=== PATIENT | female | born 1985 | race Caucasian/White ===

== ENCOUNTER 2016-10-18 05:50 | Emergency (ER) | payer OTHER ==
[~2016-10-18] VITALS: Ht 177.8 cm; Wt 77.3 kg
[~2016-10-18 05:50] MED LIST: DOCO200C5 PO; Docusate Sodium PO; Ibuprofen PO
[2016-10-18 05:57] VITALS: BP 145/91; PULSE 56; RESP 20; O2SAT 100
[2016-10-18 06:15] LABS: Mean Corpuscular Hemoglobin 30.9 pg (27.0-35.0); Mean Corpuscular Volume 86.2 fL (81-100)
[2016-10-18 06:16] LABS: BASOPHILS % (AUTO) 0.4 % (0-3); EOSINOPHILS % (AUTO) 3.4 % (0-5); MONOCYTES % (AUTO) 6.5 % (4-12); NEUTROPHILS % (AUTO) 64.2 % (40-74); Platelet Count 179 bil/L (150-400)
--- NOTE | 2016-10-18 06:17 | ED.REPORT ---
HPI-Abd Pain F Under 40 Date of Service Oct 18, 2016 ED Provider: Breann Herzog Patient is an otherwise healthy 31 year old female who presents to the ED complaining of L flank pain that awoke her at 0500 this morning. Her pain radiates across her back, exacerbated by movement, and is rated a 7/10 in severity. Associated symptoms include hematuria onset yesterday. She denies dysuria, fever, chills, nausea, vomiting, or any other symptoms. She has not had similar symptoms previously and does not have a hx of kidney stones. Patient's only medication is an oral contraceptive. Nursing Notes Stated Complaint: KIDNEY PAIN Chief Complaint: Female Abdominal Pain Nursing Notes Reviewed: Yes Allergies: Coded Allergies: No Known Allergies (Unverified , 10/09/13) Scheduled Docosahexanoic Acid ( Dha) 200 Mg Capsule 200 MG PO DAILY Scheduled PRN ([Docusate Sodium]) 100 MG CAPSULE 100 MG PO BID PRN PRN For Constipation ([Ibuprofen]) 800 MG TABLET 600 MG PO Q6H PRN PRN For Mild Pain oxyCODONE-Acetaminophen 5-325 mg (oxyCODONE-Acetaminophen 5-325 mg) 1 Each Tablet 1-2 TAB PO Q6H PRN PRN For Pain General Time Seen by MD: 06:17 Chief Complaint Flank pain left Hx Obtained From: Patient Arrived By: Walk-in Sudden in Onset?: Yes Onset Occurred: 1 - 4 hours ago Symptom Duration: Since onset Location: : Flank right Quality: Painful Radiation: : Back Severity: Current: Pain level 7 out of 10 Recent Healthcare: No recent doctor visit, No recent hospitalization Similar Sx Previous: No Past Medical History Past Medical History Notes: [employer]ING [employer]: [place] Past Medical History Denies Past Surgical History Reports: Tonsillectomy Family History Brother with Uric acid kidney stones Smoking History Unknown if Ever Smoker Social History Other Social History: Ambulatory Status Independent Review of Systems Constitutional: Denies: Chills, Fever GI: Denies: Nausea, Vomiting Female: Reports: Flank pain, Hematuria, Denies: Dysuria Musculoskeletal: Reports: Back pain Complete sys rev & neg: except as marked. Physical Exam Initial Vital Signs Vital Signs (First) Date Time Temp Pulse Resp B/P Pulse Ox O2 Delivery O2 Flow Rate FiO2 10/18/16 05:57 36.1 56 20 145/91 100 Initial VS: Reviewed, Vital signs abnormal Head / Eyes: Atraumatic, Normocephalic Neck: Supple, Full range of motion Skin: Warm, Dry Neurologic: Alert, Oriented, Nonfocal Psychiatric: Mood/affect normal, Behavior normal, Normal thought content General/Constitutional: Awake, Alert, No acute distress Respiratory / Chest: Atraumatic, Breath sounds NL, Breath sounds = bilat, No respiratory distress Cardiovascular: Heart rate NL, Regular rhythm, Heart sounds NL well perfused Abdomen: Atraumatic, Soft, Non-tender, BS normoactive Flank / Spine / Paraspinal: Positive: Flank tender L Interpretation & Diagnostics Interpretation & Diagnostics: upreg neg trace LE, + nitrated, protein, bili, blood Lab Results Interpretation Result Diagram: 10/18/16 0602 10/18/16 0602 Test 10/18/16 06:00 10/18/16 06:02 Hold Urine Received (Received) White Blood Count 8.3th/mm3 (3.8-10.1) Red Blood Count 4.50mil/mm3 (3.90-5.20) Hemoglobin 13.9g/dL (12.0-15.6) Hematocrit 38.8% (35.0-46.0) Mean Corpuscular Volume 86.2fL (81-100) Mean Corpuscular Hemoglobin 30.9pg (27.0-35.0) Mean Corpuscular Hemoglobin Concent 35.8% (32.0-37.0) Red Cell Distribution Width 11.4% (12.3-15.4) Platelet Count 179bil/L (150-400) Neutrophils (%) (Auto) 64.2% (40-74) Lymphocytes (%) (Auto) 25.4% (14-46) Monocytes (%) (Auto) 6.5% (4-12) Eosinophils (%) (Auto) 3.4% (0-5) Basophils (%) (Auto) 0.4% (0-3) Sodium Level 139mEq/L (134-144) Potassium Level 3.6mEq/L (3.5-5.2) Chloride Level 103mEq/L (97-108) Carbon Dioxide Level 23mmol/L (18-29) Blood Urea Nitrogen 13mg/dL (6-20) Creatinine 0.57mg/dL (0.57-1.00) Estimat Glomerular Filtration Rate 178mL/min (>59) Glucose Level 142mg/dL (60-99) Calcium Level 8.6mg/dL (8.5-10.1) Magnesium Level 1.7mg/dL (1.6-2.6) Total Bilirubin 0.4mg/dL (0.0-1.2) Aspartate Amino Transf (AST/SGOT) 15U/L (0-50) Alanine Aminotransferase (ALT/SGPT) 10U/L (0-32) Alkaline Phosphatase 61U/L (25-150) Total Protein 6.7g/dL (6.4-8.4) Albumin 4.2g/dL (3.4-5.0) Lipase 43U/L (13-60) CT Abd / Pelvis Interpretation IMPRESSION: Mild left hydronephrosis associated with a 3 mm stone in the proximal left ureter. Radiologist: Abdoulaye Ramirez M.D. Study type: Abdominal CT no contrast Interpretation / Wet Read by: Interpret - Radiologist Re-Eval/Medical Decision Med Decision/Clinical Course Med Decision/Clinical Course: Presents with 24 hours of hematuria without dysuria. She does have a brother who has uric acid kidney stones. CT scan confirms a proximal ureteral 3 mm stone. Pain was controlled with Toradol. Home with pain medications, instructions and education. He will have her follow up with urology should she have difficulties. Re-Evaluation/Progress : Time of Eval: 07:33 )( Re-Eval Abdomen: Soft Re-Evaluation/Progress Note: Rechecked pt. Discussed CT results and plan for discharge. Patient understands and agrees with plan. All questions addressed at this time. Counseled Regarding: Diagnosis, Lab results, Need for follow-up, When/why to return to ED Discharge & Departure Primary Impression: Kidney stone Additional Impression: Hydronephrosis Hydronephrosis type: unspecified Qualified Code: N13.30 - Unspecified hydronephrosis Disposition: Home Discharge Condition All VS Reviewed: Yes Condition: Stable Patient Instructions: Kidney Stones (ED) Additional Instructions: Thank you for coming to the emergency department. Your CT scan indicates that you have a kidney stone in the L ureter. You may continue to have pain as it moves to you bladder. You can take Ibuprofen as needed for this pain. For more intense pain, you may take Percocet. Do not drive , drink alcohol, or take acetaminophen while taking Percocet. This medication can make you constipated so eat a fibrous diet and use a stool softener if needed. Use the urine strainer provided to catch the kidney stone as it exits. Keep this in case you have recurrent stones in the future so that it can be evaluated. Call the urologist via the number provided to schedule a follow up appointment. Return to the emergency department if you feel your symptoms are worsening. Referrals: Keri Herrera MD Attestation Portions of this note were transcribed by Peña Lin. I, Dr. Herzog personally performed the history, physical exam and medical decision-making; I reviewed and confirmed the accuracy of the information in the transcribed note. Signed by: Arturo Kauffman, 10/18/16 copies to: Keri Herrera MD, Shawna L MD Oct 18, 2016 06:17 PEÑA LIN Oct 18, 2016 06:40
[2016-10-18 06:35] LABS: Magnesium 1.7 mg/dL (1.6-2.6)
[2016-10-18] MEDS ORDERED: OXYC1TAB24 PO (07:49)
[2016-10-18 08:02] VITALS: BP 123/72; PULSE 47; RESP 12; O2SAT 100
[2016-10-18 08:03] VITALS: BP 123/72; PULSE 47; RESP 12; O2SAT 100
--- NOTE | 2016-10-18 10:01 | DRSVH ---
PROCEDURE: CT KUB ([id number]) INDICATIONS: hematuria, Left flank pain TECHNIQUE: Noncontrast 5 mm thick sections acquired from the diaphragms to the symphysis. 5 mm thick coronal an d sagittal reformats were then performed. For radiation dose reduction, the following was used: aut omated exposure control, adjustment of mA and/or kV according to patient size. COMPARISON: None. FINDINGS: Image quality: Excellent. Lung bases: Lung bases are clear. Heart size is normal. Urinary system: There is a 3 mm stone in the proximal left ureter with a CT density 542 HU. There is mild left hydronephrosis and perinephric stranding. A tiny 1 mm nonobstructive is present in the lef t kidney. Both kidneys are normal in size. Both ureters appear non-dilated throughout their expected courses. Bladder wall thickness is normal; no calcified bladder stones. Other solid organs: Liver and spleen are normal in size. Gallbladder is normal. Pancreas is normal in contours. No adrenal nodules. Peritoneum and bowel: Unenhanced bowel loops demonstrate normal wall thickness and caliber. No free fluid or air. Nodes and vessels: No retroperitoneal or mesenteric adenopathy by size criteria. Aorta and inferior vena cava are normal in caliber. Abdominal wall: No ventral hernias. Pelvis: No free pelvic fluid. No inguinal hernias or adenopathy. Bones: No suspicious bony lesions. No vertebral body compression fractures. IMPRESSION: 1. A 3 mm stone in the proximal left ureter causing mild left hydronephrosis and perinephric strandin g. 2. A tiny 1 mm nonobstructing stone in left kidney. No significant discrepancy with the watch assembly instructor radiology preliminary report. Dictated by: Kadi Moffett M.D. on 10/18/2016 at 9:54 Transcribed by: DAVINA on 10/18/2016 at 10:01 Approved by: Kadi Moffett M.D. on 10/18/2016 at 11:59
== END 2016-10-18 08:04 | disposition home or self-care (01) ==
LOC: SED 05:50
DX: N20.0 Calculus of kidney (principal); N13.30 Unspecified hydronephrosis
CPT/HCPCS: 36415; 74176; 80053; 81025; 83690; 83735; 85025; 96374; 99285; J1885